=== PATIENT | female | born 1935 | race Caucasian/White ===

== ENCOUNTER 2016-12-10 13:44 | Inpatient (IN) | payer MEDICARE, OTHER ==
[~2016-12-10] VITALS: Ht 152.4 cm; Wt 44.0 kg
[~2016-12-10 13:44] MED LIST: ALBU90AE IH; DONE5TAB3 PO
[2016-12-10] MEDS ORDERED: TIOT18CA3 IH (14:08)
[2016-12-10] MEDS ORDERED: BECL8.7A6 IH (14:08)
[2016-12-10] MEDS ORDERED: PRED10TA PO (14:08)
[2016-12-10] MEDS ORDERED: PANT40TA4 PO (14:08)
[2016-12-10] MEDS ORDERED: IPRA0.2S6 NEB (14:08)
[2016-12-10] MEDS ORDERED: IPRATROPIUM BROMIDE 0.5 MG/2.5 ML NEBU NEB ONE (14:15)
[2016-12-10] MEDS ORDERED: ALBUTEROL SULFATE 2.5 MG/3 ML NEBU NEB ONE (14:15)
[2016-12-10 14:26] LABS: BASOPHILS % (AUTO) 0.3 % (0.0-2.0); EOSINOPHILS # (AUTO) 0.2 K/uL (0.0-0.7); LYMPHOCYTES # (AUTO) 0.5 K/uL (20.0-40.0); LYMPHOCYTES % (AUTO) 3.4 % (20.5-51.5); MEAN CORPUSCULAR HEMOGLOBIN 31.3 UUG (27.0-31.0); MEAN CORPUSCULAR HGB CONC 33 g/dL (32.0-37.0); MONOCYTES # (AUTO) 0.2 K/uL (2.0-10.0); MONOCYTES % (AUTO) 1.6 % (0.0-11.0); NEUTROPHILS # (AUTO) 14.6 K/uL (1.8-8.9); NEUTROPHILS % (AUTO) 93.7 % (38.5-71.5); PLATELET COUNT (AUTO) 135 K/UL (150-450); RED BLOOD CELL COUNT(AUTO) 4.79 MIL/UL (4.2-5.4); RED CELL DISTRIBUTION WIDTH 13.3 % (11.5-14.5); WHITE BLOOD COUNT (AUTO) 15.5 K/UL (4.0-11.2)
[2016-12-10] MEDS ORDERED: ALBUTEROL SULFATE 2.5 MG/3 ML NEBU ONE (14:26)
[2016-12-10] MEDS ORDERED: IPRATROPIUM BROMIDE 0.5 MG/2.5 ML NEBU ONE (14:26)
[2016-12-10 14:30] LABS: CALCIUM 10.1 mg/dL (8.5-10.1); CREATININE 1.3 mg/dL (0.6-1.3); POTASSIUM 4.2 mmol/L (3.5-5.1)
[2016-12-10 14:38] LABS: TROPONIN I < 0.017 ng/mL (0.00-0.056)
[2016-12-10 14:43] LABS: ALBUMIN 3.2 g/dL (3.4-5.0); BILIRUBIN,DIRECT 0.1 mg/dL (0.0-0.2); BILIRUBIN,TOTAL 0.5 mg/dL (0.2-1.0); TOTAL PROTEIN, SERUM 7.1 g/dL (6.4-8.2)
[2016-12-10 14:44] LABS: BAND % (MANUAL) 2 % (0-10); LYMPHOCYTES % (MANUAL) 5 % (20-40); MONOCYTES % (MANUAL) 1 % (2-10); NEUTROPHILS % (MANUAL) 92 % (42-75); PLATELET ESTIMATE SLIGHT DECREASED
--- NOTE | 2016-12-10 16:01 | NUR ---
PT EATING HOSPITAL LUNCH TRAY PER REQUEST, MD LOPEZ
[2016-12-10 16:15] LABS: *BILIRUBIN,URIN NEGATIVE (NEGATIVE); *BLOOD, URINE NEGATIVE (NEGATIVE); *CLARITY,URINE CLEAR (CLEAR); *COLOR,URINE YELLOW (YELLOW); *KETONES,URINE NEGATIVE (NEGATIVE); *PROTEIN,URINE TRACE (NEGATIVE); *UROBILINOGEN,URINE 0.2 E.U./dl (NORMAL); LEUKOCYTE ESTERASE ,URINE NEGATIVE (NEGATIVE); NITRITE, URINE NEGATIVE (NEGATIVE); PH,URINE 5.5 (5.0-8.0); UGLUCOSE NEGATIVE (NEGATIVE)
[2016-12-10 16:29] LABS: SQUAMOUS EPITHELIAL CELL,UR FEW /HPF (NONE SEEN); URINE AMORPHOUS URATE FEW /HPF; WBC,URINE 0-3 /HPF (0-3)
[2016-12-10] MEDS ORDERED: NEOMY/BACITRA/POLYMYXIN B OINT UD PACKET TP ONE ×2 (18:00→18:04)
--- NOTE | 2016-12-10 18:00 | NUR ---
PT WALKED TO BATH ROOM WITH ASSISSTANCE.
--- NOTE | 2016-12-10 18:44 | NUR ---
PT TRANSFERED TO FLOOR IN STABLE CONDITION
--- NOTE | 2016-12-10 18:57 | NUR ---
pt received from er via [facility], [place] for copd in stable condition.pt is confused,orient the pt to room and surroundings.
--- NOTE | 2016-12-10 19:30 | NUR ---
RECEIVED PT IN BED, AWAKE, ALERT TO SELF, WITH PERIODS OF CONFUSION. INITIATE ADMISSION ASSESSMENTS. ADMITTED TO TELE UNDER CARE OF DR. ROBERSON. WILL CALL FOR ORDERS. BED ALARM ON.
[2016-12-10 20:00] VITALS: BP 126/76
[2016-12-10] MEDS ORDERED: LEVOFLOXACIN 500 MG/D5W 500 MG in PREMIXED 1 EACH IV SCH (20:30)
[2016-12-10] MEDS ORDERED: LEVOFLOXACIN 500 MG/D5W 500 MG in PREMIXED 1 EACH IV ONE (21:00)
[2016-12-10] MEDS: methylPREDNISolone SOD SUCC 40 MG/ML VIAL IV SCH (21:31)
[2016-12-11] VITALS: BP 130/84
[2016-12-11 04:00] VITALS: BP 114/75
[2016-12-11] MEDS: methylPREDNISolone SOD SUCC 40 MG/ML VIAL IV SCH ×2 (06:05→14:15)
--- NOTE | 2016-12-11 06:48 | NUR ---
PT RESTING IN BED, SLEPT INTERMITTENTLY DURING SHIFT. ON SINUS RHYTHM ON TELE, IN NO ACUTE SIGNS OF DISTRESS. SAFETY MAINTAINED. BED ALARM ON.
[2016-12-11 07:01] LABS: BASOPHILS % (AUTO) 0.3 % (0.0-2.0); EOSINOPHILS % (AUTO) 0.2 % (0.0-7.0); HEMATOCRIT 41.6 % (37-47); LYMPHOCYTES # (AUTO) 0.6 K/uL (20.0-40.0); LYMPHOCYTES % (AUTO) 4.3 % (20.5-51.5); MEAN CORPUSCULAR HEMOGLOBIN 31.5 UUG (27.0-31.0); MEAN CORPUSCULAR HGB CONC 34 g/dL (32.0-37.0); MEAN CORPUSCULAR VOLUME 93.5 FL (81.0-99.0); MONOCYTES # (AUTO) 0.2 K/uL (2.0-10.0); MONOCYTES % (AUTO) 1.5 % (0.0-11.0); NEUTROPHILS # (AUTO) 12.9 K/uL (1.8-8.9); NEUTROPHILS % (AUTO) 93.7 % (38.5-71.5); PLATELET COUNT (AUTO) 133 K/UL (150-450); RED BLOOD CELL COUNT(AUTO) 4.45 MIL/UL (4.2-5.4); RED CELL DISTRIBUTION WIDTH 12.6 % (11.5-14.5); WHITE BLOOD COUNT (AUTO) 13.7 K/UL (4.0-11.2)
[2016-12-11 07:04] LABS: CALCIUM 9.8 mg/dL (8.5-10.1); CREATININE 1.2 mg/dL (0.6-1.3); MAGNESIUM 1.7 mg/dL (1.8-2.4); PHOSPHOROUS 3.5 mg/dL (2.5-4.9); POTASSIUM 4.4 mmol/L (3.5-5.1)
[2016-12-11 07:40] LABS: BAND % (MANUAL) 7 % (0-10); LYMPHOCYTES % (MANUAL) 5 % (20-40); MONOCYTES % (MANUAL) 1 % (2-10); NEUTROPHILS % (MANUAL) 87 % (42-75); PLATELET ESTIMATE SLIGHT DECREASED
--- NOTE | 2016-12-11 07:52 | NUR ---
PT IS LAYING IN BED COMFORTABLY. PT GETS AGITATED AT TIMES. NO S/S OF RESPIRATORY DISTRESS NOTED. PT IS ON 3L NC. NO PAIN REPORTED. ALL SAFETY NEEDS ARE MET. WILL CONTINUE TO MONITOR.
[2016-12-11] MEDS ORDERED: LEVO500T15 PO (08:54)
[2016-12-11 11:45] VITALS: BP 120/63
[2016-12-11] MEDS ORDERED: MAGNESIUM OXIDE 400 MG TABLET PO ONE (14:00)
--- NOTE | 2016-12-11 15:31 | NUR ---
DISCHARGE NOTE: V/S WNL. NO PAIN/SOB REPORTED. NO S/S OF RESPIRATORY DISTRESS. IV/WRISTBAND IS REMOVED. PT IS ALERT AND ORIENTEDX1. PT LEFT VIA WHEELCHAIR/PRIVATE CAR TO [facility] WITH KIRSTEN(CAREGIVER). EDUCATION IS GIVEN TO THE PT AND CAREGIVER, PER KIRSTEN "I WILL RELAY THE INFORMATION, PRESCRIPTION IS IN PT' FOLDER. CAREGIVER AND THE PT IS REMINDED ABOUT THE PRESCRIPTION. NO DIZZINESS/WEAKNESS IS NOTED/REPORTED.
[2016-12-11] MEDS ORDERED: LEVOFLOXACIN 250MG /D5W 250 MG in PREMIXED 1 EACH IV SCH (21:00)
== END 2016-12-11 15:32 | DRG 191 ==
LOC: ER 13:44 → TELE 18:36 → MED 12-11 08:59
PROVIDERS: ADMIT Internal Medicine; ATTEND Internal Medicine
DX: J44.1 Chronic obstructive pulmonary disease with (acute) exacerbation (principal); Z68.1 Body mass index [BMI] 19.9 or less, adult; E44.1 Mild protein-calorie malnutrition; F03.90 Unspecified dementia, unspecified severity, without behavioral disturbance, psychotic disturbance, mood disturbance, and anxiety; D72.829 Elevated white blood cell count, unspecified; K21.9 Gastro-esophageal reflux disease without esophagitis; T38.0X5A Adverse effect of glucocorticoids and synthetic analogues, initial encounter; Z79.899 Other long term (current) drug therapy; Y92.89 Other specified places as the place of occurrence of the external cause; D69.6 Thrombocytopenia, unspecified
CPT/HCPCS: 36415; 70030-TC; 71010; 83605; 83735; 84100; 85025; 85730; 87040; 87086; 93005; 93307; A4663; J1956; J2920; J3590; J7040